=== PATIENT | female | born 1985 | race Caucasian/White ===

== ENCOUNTER 2020-02-20 20:13 | Emergency (ER) | payer SELFPAY ==
[~2020-02-20] VITALS: Ht 167.6 cm; Wt 70.5 kg
[2020-02-20 20:18] VITALS: BP 131/87
[2020-02-20] MEDS ORDERED: BUPR75 PO (20:50)
[2020-02-20] MEDS ORDERED: HYD25 PO (20:50)
== END 2020-02-20 21:43 | disposition left against medical advice (07) ==
LOC: EMS 20:15
DX: B86 Scabies (principal); Z53.21 Procedure and treatment not carried out due to patient leaving prior to being seen by health care provider

== ENCOUNTER 2022-11-16 16:25 | Inpatient (IN) | payer MEDICARE, MEDICAID ==
[~2022-11-16] VITALS: Ht 167.6 cm; Wt 72.6 kg
[~2022-11-16 16:25] MED LIST: BUPR-344 PO; HYDR-4527 PO
[2022-11-16] MEDS ORDERED: DOCO200C5 PO (16:46)
[2022-11-16 17:50] LABS: BASOPHILS % (AUTO) 0.5 % (0.0-2.0); EOSINOPHILS % (AUTO) 1.8 % (1.0-6.0); HEMATOCRIT 38.4 % (36-46); HEMOGLOBIN 12.3 g/dL (12.0-16.0); LYMPHOCYTES # (AUTO) 1.8 K/uL (1.0-4.8); LYMPHOCYTES % (AUTO) 22.4 % (22.0-44.0); MEAN CORPUSCULAR HEMOGLOBIN 26.8 pg (26.0-34.0); MEAN CORPUSCULAR VOLUME 84 fL (80-100); MONOCYTES # (AUTO) 0.4 K/uL (0.1-1.0); MONOCYTES % (AUTO) 5.1 % (2.0-9.0); NEUTROPHILS # (AUTO) 5.8 K/uL (1.8-7.7); NEUTROPHILS % (AUTO) 70.2 % (40.0-70.0); PLATELET COUNT (AUTO) 271 K/uL (150-450); RED BLOOD CELL COUNT(AUTO) 4.59 MIL/uL (4.00-5.20)
[2022-11-16 18:04] LABS: ANION GAP 9 mmol/L (8-16); CALCIUM, TOTAL 9.1 mg/dL (8.8-10.5); CARBON DIOXIDE 30 mmol/L (22-29); CHLORIDE 104 mmol/L (98-107); CREATININE 0.83 mg/dL (0.60-1.30); GLUCOSE,RANDOM 102 mg/dL (70-110); SODIUM SERUM 143 mmol/L (136-145); UREA NITROGEN, BLOOD 20 mg/dL (7-18)
[2022-11-16 18:08] LABS: GLOMERULAR FILTR. RATE CALC > 60 mL/min (>60)
[2022-11-16 18:09] LABS: ALANINE AMINOTRANSFERASE 26 U/L (12-78); ALBUMIN 3.9 g/dL (3.4-5.0); ALKALINE PHOSPHATASE 98 U/L (46-116); ASPARTATE AMINOTRANSFERASE 16 U/L (15-37); BILIRUBIN,TOTAL 0.2 mg/dL (0.1-1.0); TOTAL PROTEIN, SERUM 8.2 g/dL (6.4-8.2)
[2022-11-16] MEDS ORDERED: DiphenhydrAMINE HCL 50 MG/ML VIAL IM ONE (20:30)
[2022-11-16] MEDS ORDERED: HALOPERIDOL LACTATE 5 MG/ML VIAL IM ONE (20:30)
[2022-11-16] MEDS ORDERED: LORazepam 2 MG/ML VIAL IM ONE (20:30)
[2022-11-16 21:24] LABS: APPEARANCE,URINE HAZY (CLEAR); BILIRUBIN,URINE NEGATIVE (NEGATIVE); GLUCOSE, URINE (UA) NEGATIVE (NEGATIVE); KETONES,URINE NEGATIVE (NEGATIVE); LEUKOCYTE ESTERASE ,URINE MODERATE (NEGATIVE); NITRATE,URINE NEGATIVE (NEGATIVE); OCCULT BLOOD,URINE NEGATIVE (NEGATIVE); PROTEIN,URINE NEGATIVE (NEGATIVE); SPECIFIC GRAVITIY, URINE 1.022 (1.003-1.030); UROBILINOGEN,URINE <=1.0 mg/dL (<=1.0)
[2022-11-16 21:29] LABS: AMPHET/METH SCREEN,URINE NEGATIVE (NEGATIVE); BARBITURATE SCREEN, URINE NEGATIVE (NEGATIVE); BENZODIAZEPINES SCREEN,URINE NEGATIVE (NEGATIVE); CANNABINOID SCREEN,URINE NEGATIVE (NEGATIVE); COCAINE SCREEN,URINE NEGATIVE (NEGATIVE); METHADONE SCREEN, URINE NEGATIVE (NEGATIVE); OPIATE SCREEN,URINE NEGATIVE (NEGATIVE)
[2022-11-16] MEDS ORDERED: PROMETHAZINE HCL 25 MG TABLET PO PRN (21:30)
[2022-11-16] MEDS ORDERED: MAGNESIUM HYDROXIDE SUSPENSION 30 ML UDCUP PO PRN (21:30)
[2022-11-16] MEDS ORDERED: MAG HYDROX/AL HYDROX/SIMETH ES 30 ML SUSPENSION UDCUP PO PRN (21:30)
[2022-11-16] MEDS ORDERED: GuaiFENesin/D-METHORPHAN [SUGAR-FREE] 200-20MG/10 ML SYRUP UDCUP PO PRN (21:30)
[2022-11-16] MEDS ORDERED: LOPERAMIDE HCL 2 MG CAPSULE PO PRN (21:30)
[2022-11-16] MEDS ORDERED: OLANZapine 5 MG RAPDIS TABLET PO PRN (21:30)
[2022-11-16] MEDS ORDERED: ACETAMINOPHEN 325 MG TABLET PO PRN (21:30)
[2022-11-16] MEDS ORDERED: HydrOXYzine PAMOATE 50 MG CAPSULE PO PRN (21:30)
[2022-11-16] MEDS ORDERED: LORazepam 2 MG TABLET PO PRN (21:30)
[2022-11-16] MEDS ORDERED: ZOLPIDEM TARTRATE 10 MG TABLET PO PRN (21:30)
[2022-11-16] MEDS ORDERED: TUBERCULIN, PURIFIED PROTEIN DERIVATIVE 5 TU/0.1 ML SYRINGE ID ONE (21:30)
[2022-11-16 21:34] LABS: PHENCYCLIDINE SCREEN,URINE NEGATIVE (NEGATIVE)
[2022-11-16 21:39] LABS: AMORPHOUS SEDIMENT,UR Moderate /LPF (None Seen); BACTERIA,URINE Few /HPF (None Seen); RBC,URINE 0-2 /HPF (0-2); SQUAMOUS EPITHELIAL CELL,UR Rare /LPF (None Seen)
[2022-11-16 21:48] LABS: COVID AG,FIA SOURCE NASOPHARYNGEAL
[2022-11-17] MEDS: FOLIC ACID 1 MG TABLET PO SCH (08:52)
[2022-11-17] MEDS: MULTIVITAMINS WITH MINERALS, THERAPEUTIC TABLET PO SCH (08:52)
[2022-11-17] MEDS: THIAMINE 100 MG TABLET PO SCH ×2 (08:52→18:09)
[2022-11-17 09:07] LABS: CHOL/HDL RATIO 2.8 (3.9-5.7); CHOLESTEROL 124 mg/dL (131-200); HCG,QUANTITATIVE < 1 mIU/mL (0-6); HDL CHOLESTEROL 44 mg/dL (40-60); LDL CHOL (CALC.) 70 mg/dL (0-130); TRIGLYCERIDES 48 mg/dL (15-150)
[2022-11-17 09:14] LABS: HEMOGLOBIN A1C 5.4 % (3.8-5.6)
[2022-11-17] MEDS: NALTREXONE HCL 50 MG TABLET PO SCH (12:13)
[2022-11-17] MEDS: OMEGA-3/DHA/EPA/FISH OIL 1,000 MG CAPSULE PO SCH (12:14)
[2022-11-17 19:01] LABS: RAPID PLASMA REAGIN NONREACTIVE (NONREACTIVE)
[2022-11-17 20:10] VITALS: BP 127/78
[2022-11-17] MEDS: MELATONIN 5 MG TABLET PO SCH (21:00)
[2022-11-17] MEDS ORDERED: OLANZapine 5 MG RAPDIS TABLET PO SCH (21:00)
[2022-11-17] MEDS ORDERED: INFLUENZA VIRUS VACCINE QVS 2022-23 (6MO+)/PF 60 MCG/0.5 ML SYRINGE IM. ONE (23:45)
[2022-11-18 09:12] VITALS: BP 105/63
[2022-11-18] MEDS: THIAMINE 100 MG TABLET PO SCH ×2 (09:16→16:29)
[2022-11-18] MEDS: FOLIC ACID 1 MG TABLET PO SCH (09:16)
[2022-11-18] MEDS: NALTREXONE HCL 50 MG TABLET PO SCH (09:16)
[2022-11-18] MEDS: NITROFURANTOIN MONOHYD/M-CRYST 100 MG CAPSULE [MACROBID] PO SCH ×2 (09:16→16:29)
[2022-11-18] MEDS: OMEGA-3/DHA/EPA/FISH OIL 1,000 MG CAPSULE PO SCH (09:16)
[2022-11-18] MEDS: MULTIVITAMINS WITH MINERALS, THERAPEUTIC TABLET PO SCH (09:16)
[2022-11-18] MEDS ORDERED: MELA5TAB40 PO (19:38)
[2022-11-18] MEDS ORDERED: OMEG-135 PO (19:38)
[2022-11-18] MEDS ORDERED: FLUO20CA36 PO (19:38)
[2022-11-18 20:08] VITALS: BP 108/60
[2022-11-18] MEDS: MELATONIN 5 MG TABLET PO SCH (20:33)
[2022-11-19 08:30] VITALS: BP 136/83
[2022-11-19] MEDS: MULTIVITAMINS WITH MINERALS, THERAPEUTIC TABLET PO SCH (08:50)
[2022-11-19] MEDS: NALTREXONE HCL 50 MG TABLET PO SCH (08:50)
[2022-11-19] MEDS: NITROFURANTOIN MONOHYD/M-CRYST 100 MG CAPSULE [MACROBID] PO SCH (08:50)
[2022-11-19] MEDS: OMEGA-3/DHA/EPA/FISH OIL 1,000 MG CAPSULE PO SCH (08:50)
[2022-11-19] MEDS: FOLIC ACID 1 MG TABLET PO SCH (08:50)
[2022-11-19] MEDS: THIAMINE 100 MG TABLET PO SCH (08:50)
[2022-11-19] MEDS ORDERED: FLUoxetine HCL 20 MG CAPSULE PO SCH (09:00)
[2022-11-19] MEDS ORDERED: NITR-75 PO (10:30)
[2022-11-19] MEDS ORDERED: NITR100C4 PO (12:13)
[2022-11-20 05:07] LABS: HIV 1-2 SCREEN 4TH GEN W/RFLX Non Reactive (Non Reactive)
== END 2022-11-19 11:30 | disposition home or self-care (01) | DRG 885 ==
LOC: EMS 16:30 → B3A 11-17 14:13 → B2X 11-17 19:41
PROVIDERS: ADMIT Psychiatry & Neurology Psychiatry; ATTEND Psychiatry & Neurology Psychiatry
DX: F29 Unspecified psychosis not due to a substance or known physiological condition (principal); N39.0 Urinary tract infection, site not specified; H54.8 Legal blindness, as defined in USA; Z20.822 Contact with and (suspected) exposure to COVID-19; Z78.1 Physical restraint status; Z87.828 Personal history of other (healed) physical injury and trauma; Z88.8 Allergy status to other drugs, medicaments and biological substances
CPT/HCPCS: 80053; 80061; 80307; 81001; 83036; 84702; 84703; 85025; 86592; 86901; 87389; G0480; J1200; J1630; J2060; Q9967